=== PATIENT | female | born 1970 | race Caucasian/White ===

== ENCOUNTER → 2019-04-04 | Outpatient (REF) | payer OTHER | LOC: M LAB LCGH 11:25 | PROVIDERS: ATTEND Family Medicine | DX: Z12.4 Encounter for screening for malignant neoplasm of cervix (principal) ==

== ENCOUNTER → 2020-01-21 | Outpatient (REF) | payer OTHER | LOC: M LAB REF 14:50 | PROVIDERS: ATTEND Physician Assistant | DX: J36 Peritonsillar abscess (principal) ==